=== PATIENT | male | born 1970 | race Caucasian/White ===

== ENCOUNTER → 2022-02-16 09:28 | Outpatient (CLI) | payer OTHER, SELFPAY ==
[2022-02-16 10:15] LABS: Semen Sperm Prescence Post-Vas Absent (ABSENT)
== END ==
PROVIDERS: PCP Family Medicine; Referring Provider Family Medicine; Visit Provider Family Medicine
DX: Z98.52 Vasectomy status (principal)
CPT/HCPCS: 89321

== ENCOUNTER → 2022-03-24 09:59 | Outpatient (CLI) | payer OTHER, SELFPAY ==
[2022-03-24 11:04] LABS: Add Manual Diff / Slide Review NO; Basophils Absolute Auto 0 /uL (0-100); Basophils Percent Auto 0.7 % (0-2); Eosinophils Absolute Auto 100 /uL (0-450); Eosinophils Percent Auto 1.2 % (2-4); Hematocrit 43.3 % (41-53); Hemoglobin 15.1 g/dL (13.5-17.5); Lymphocytes Absolute Auto 1600 /uL (1100-4500); Lymphocytes Percent Auto 31.9 % (25-40); Mean Corpuscular HGB Conc 34.9 % (30-36); Mean Corpuscular Hemoglobin 33.2 PG (26-34); Mean Corpuscular Volume 94.9 fL (80-100); Monocytes Absolute Auto 400 /uL (0-900); Neutrophils Absolute Auto 2800 /uL (1500-7000); Neutrophils Percent Auto 57.2 % (50-75); Platelet Count 239 X10^3/uL (150-400); Red Blood Cell Count 4.56 X10^6/uL (4.5-5.9); Red Cell Distribution Width 12.5 % (11.6-14.8)
[2022-03-24 11:35] LABS: Alanine Aminotransferase 21 IU/L (<50); Albumin 4.7 g/dL (3.5-5.0); Albumin Globulin Ratio 1.6 (1.0-2.8); Alkaline Phosphatase 75 U/L (38-126); Aspartate Aminotransferase 27 IU/L (17-59); BUN Creatinine Ratio 17.9 (6-22); Bilirubin Total 0.9 mg/dL (0.2-1.3); Blood Urea Nitrogen 15 mg/dL (9-20); Calcium 9.1 mg/dL (8.4-10.2); Carbon Dioxide 27 mmol/L (22-32); Chloride 101 mmol/L (98-107); Cholesterol 197 mg/dL (140-199); Estimated Glomerular Filt Rate > 60 mL/min (>60); Glucose 97 mg/dL (70-100); HDL Cholesterol 63 mg/dL (40-60); HEMOLYSIS < 15 (0-50); LDL Cholesterol Calculated 123 mg/dL (<100); Potassium 4.3 mmol/L (3.4-5.1); Sodium 138 mmol/L (137-145); Total Protein 7.7 g/dL (6.3-8.2); Triglycerides 56 mg/dL (35-150)
[2022-03-24 12:05] LABS: Prostate Specific Antigen Scrn 0.813 ng/mL (0.1-4.0)
[2022-03-24 12:42] LABS: TSH w/ Reflex to FT4 1.36 uIU/mL (0.47-4.68)
[2022-03-24 14:26] LABS: Creatinine Urine Random 70.3 mg/dL
[2022-03-24 14:37] LABS: Microalbumin Urine Random < 0.6 mg/dL (0-1.6)
== END ==
PROVIDERS: PCP Family Medicine; Referring Provider Family Medicine; Visit Provider Family Medicine
DX: F41.8 Other specified anxiety disorders (principal); M25.521 Pain in right elbow; R19.09 Other intra-abdominal and pelvic swelling, mass and lump; R63.4 Abnormal weight loss; Z12.5 Encounter for screening for malignant neoplasm of prostate
CPT/HCPCS: 36415; 80053; 80061; 82043; 82570; 84443; 85025; G0103

== ENCOUNTER → 2022-04-27 08:04 | Outpatient (CLI) | payer OTHER, SELFPAY ==
--- NOTE | 2022-04-27 08:05 | DI.US.S_ITS ---
PROCEDURE: US ABDOMEN LIMITED INDICATIONS: right inguinal bulge TECHNIQUE: Real-time focused scanning was performed of the abdomen, with image documentation. COMPARISON: None. FINDINGS: Ultrasound was performed in the area of interest. No hernia is identified. IMPRESSION: No hernia is identified. Dictated by: Tate Ingram M.D. on 04/27/2022 at 17:42 Approved by: Tate Ingram M.D. on 04/27/2022 at 21:06
== END ==
PROVIDERS: PCP Family Medicine; Referring Provider Family Medicine; Visit Provider Family Medicine
DX: R19.09 Other intra-abdominal and pelvic swelling, mass and lump (principal)
CPT/HCPCS: 76705

== ENCOUNTER → 2022-08-21 10:19 | Outpatient (CLI) | payer OTHER, SELFPAY ==
[2022-08-21 11:23] LABS: Vitamin D 25 Hydroxy (D3) 34.5 ng/mL (30.0-100.0)
[2022-08-21 11:39] LABS: Testosterone 443 ng/dL (71.8-623)
== END ==
PROVIDERS: PCP Family Medicine; Referring Provider Registered Nurse Diabetes Educator; Visit Provider Registered Nurse Diabetes Educator
DX: E55.9 Vitamin D deficiency, unspecified (principal); F43.21 Adjustment disorder with depressed mood; R53.83 Other fatigue; R68.82 Decreased libido
CPT/HCPCS: 36415; 82306; 84403

== ENCOUNTER → 2023-08-28 13:33 | Outpatient (CLI) | payer OTHER, SELFPAY ==
[2023-08-28 14:11] LABS: Add Manual Diff / Slide Review NO; Basophils Absolute Auto 0 /uL (0-100); Basophils Percent Auto 0.3 % (0-2); Eosinophils Absolute Auto 0 /uL (0-450); Eosinophils Percent Auto 0.7 % (2-4); Hematocrit 44.5 % (41-53); Hemoglobin 15.1 g/dL (13.5-17.5); Lymphocytes Absolute Auto 1400 /uL (1100-4500); Lymphocytes Percent Auto 27.1 % (25-40); Mean Corpuscular HGB Conc 33.9 % (30-36); Mean Corpuscular Hemoglobin 33.5 PG (26-34); Mean Corpuscular Volume 98.7 fL (80-100); Monocytes Absolute Auto 400 /uL (0-900); Monocytes Percent Auto 7.6 % (3-14); Neutrophils Absolute Auto 3300 /uL (1500-7000); Neutrophils Percent Auto 64.3 % (50-75); Platelet Count 247 X10^3/uL (150-400); Red Blood Cell Count 4.51 X10^6/uL (4.5-5.9); Red Cell Distribution Width 12.3 % (11.6-14.8); White Blood Cell Count 5.2 X10^3/uL (4.5-11.0)
[2023-08-28 14:33] LABS: Alanine Aminotransferase 28 IU/L (<50); Albumin 4.3 g/dL (3.5-5.0); Albumin Globulin Ratio 1.4 (1.0-2.8); Alkaline Phosphatase 71 U/L (38-126); Aspartate Aminotransferase 24 IU/L (17-59); BUN Creatinine Ratio 17.4 (6-22); Bilirubin Total 1.3 mg/dL (0.2-1.3); Blood Urea Nitrogen 15 mg/dL (9-20); Calcium 9.4 mg/dL (8.4-10.2); Carbon Dioxide 29 mmol/L (22-32); Chloride 100 mmol/L (98-107); Cholesterol 185 mg/dL (140-199); Estimated Glomerular Filt Rate > 60 mL/min (>60); Glucose 100 mg/dL (70-100); HDL Cholesterol 65 mg/dL (40-60); HEMOLYSIS < 15 (0-50); LDL Cholesterol Calculated 108 mg/dL (<100); Potassium 4.1 mmol/L (3.4-5.1); Sodium 136 mmol/L (137-145); Total Protein 7.3 g/dL (6.3-8.2); Triglycerides 59 mg/dL (35-150)
[2023-08-28 14:56] LABS: TSH w/ Reflex to FT4 1.28 uIU/mL (0.47-4.68)
== END ==
PROVIDERS: PCP Family Medicine; Referring Provider Family Medicine; Visit Provider Family Medicine
DX: E78.5 Hyperlipidemia, unspecified (principal); F43.12 Post-traumatic stress disorder, chronic; F41.8 Other specified anxiety disorders; Z12.5 Encounter for screening for malignant neoplasm of prostate
CPT/HCPCS: 36415; 80053; 80061; 84443; 85025; G0103

== ENCOUNTER 2025-01-20 06:23 | Day surgery (SDC) | payer OTHER, SELFPAY ==
[2025-01-13 12:43] VITALS: BMI 21.7
[2025-01-20] MEDS: LACTATED RINGERS 1,000 ML 42 ML IV (06:37)
[2025-01-20] MEDS: ACETAMINOPHEN 325 MG TABLET 975 MG PO (06:38)
[2025-01-20 06:50] VITALS: BP 118/72; PULSE 55; RESP 16; TEMP 36.2; O2SAT 99
--- NOTE | 2025-01-20 07:35 | PM.HP.IH.1 ---
History of Present Illness History of Present Illness Date Patient Seen: 01/20/25 Time Patient Seen: 07:35 Chief complaint: Lap R inguinal hernia repair w/mesh Narrative: Juma is a 54-year-old man with a symptomatic right inguinal hernia. See the office note from November for details. No health changes since then. [facility] Surgical History Vasectomy status Social History household members: spouse Smoking Status: Never smoker Meds Home Medications and Allergies Home Medications Medication Instructions Recorded Confirmed Type pibvowi-gawiwybigiybw-emkigrvi 250 1 tab PO Q4-6H PRN 11/11/24 12/03/24 History mg-250 mg-65 mg tablet (Excedrin Migraine) Allergies Allergy/AdvReac Type Severity Reaction Status Date / Time codeine AdvReac Mild Anxiety Verified 01/20/25 06:37 Exam Vital Signs (past 8 hours): - 01/20/25 06:50 Temperature 97.1 F L Pulse Rate 55 L Respiratory Rate 16 Blood Pressure 118/72 Pulse Oximetry 99 Oxygen Delivery Method Room Air Oxygen Delivery Method Room Air Const General: healthy appearing Resp Effort & Inspection: normal respiratory effort Assessment & Plan Assessment and plan (1) Right inguinal hernia: Status: Acute Plan Laparoscopic right inguinal hernia repair with mesh Time-Based Coding :: [TOTAL MINUTES] spent with patient and on the chart (including review of chart, obtaining history, exam, reviewing outside data, placing orders, documenting exam and treatment plan, and counseling patient) on [DATE]. [employer] Supervisor Document charge(s): No
[2025-01-20] MEDS: CEFAZOLIN 2 GM/100 ML PREMIX 100 ML IV (07:52)
[2025-01-20] MEDS: BUPIVACAINE 0.5% W/ EPI (PF) 30 ML VIAL INJ (08:56)
--- NOTE | 2025-01-20 08:56 | P.OP_ITS ---
Operative Date/Time/Diagnoses Date of procedure: 01/20/25 Time of procedure: 08:57 Pre-op diagnosis: Right inguinal hernia Post-op diagnosis: other (Right direct inguinal hernia) Procedure & Clinicians Procedure: Laparoscopic right inguinal hernia repair with mesh Same procedure as scheduled: Yes Surgeon: Tremaine Thorne Program Scheduler: Sean Osman Anesthesia Type: General Operative Notes Procedure in detail: The patient was given preoperative antibiotics. The patient was brought to the operating room, placed on the table in the supine position with the arms tucked and general anesthesia was induced. The abdomen was prepped and draped in the usual fashion. A time-out was performed. A 1 cm supraumbilical incision was created and dissection was carried down to the anterior sheath. There was a small fat containing umbilical hernia. The fatty contents were amputated and the base of the umbilicus was transected. The fascial defect was a proximally 5 mm and had to be opened laterally with Bovie in each direction until it was 1 cm . The fascia was grasped with a Norman clamp to elevate abdominal wall and a Peon clamp was used to mcguire the peritoneum. The Justa port was placed and the abdomen was insufflated to 15 mmHg. The camera was inserted, there was no evidence of any injury from the entry. There was a direct right inguinal hernia. 5 mm ports were placed under direct vision in the mid left and mid right abdomen. The patient was positioned in steep Trendelenburg. We created right peritoneal flap. The peritoneum was dissected off the right cord structures and the fatty contents were reduced from the direct defect. A large right Bard mesh was brought in and placed over the defect with the medial edge against Ravi's ligament. We then closed the peritoneal flap with a running 3- 0 barbed suture. We took one last look around the abdomen and saw no other abnormalities. The suture was removed and accounted for. The 5 mm ports were removed under direct vision. The abdomen was desufflated. The Justa port was removed. Additional local was injected into the fascia and the fascial incision was closed with 2 interrupted 0 Vicryl sutures. The skin incisions were closed with 4 Monocryl, Steri-Strips and Band-Aids. EBL: 10 mL Sean CLEMENTS provided assistance with exposure, retraction and closure of incisions. Post-operative Condition: stable Disposition: PACU
[2025-01-20 09:00] VITALS: BP 119/72; PULSE 91; RESP 16; TEMP 36.5; O2SAT 96
[2025-01-20 09:08] VITALS: BP 99/62; PULSE 77; RESP 14; O2SAT 96
[2025-01-20 09:11] VITALS: BP 112/65; PULSE 91; RESP 14; TEMP 36.2; O2SAT 98
[2025-01-20 09:17] VITALS: BP 121/68; PULSE 95; RESP 14; O2SAT 97
[2025-01-20 09:18] VITALS: BP 115/75; PULSE 91; RESP 14; O2SAT 98
== END 2025-01-20 09:43 | disposition home or self-care (01) ==
PROVIDERS: PCP Family Medicine; Referring Provider Surgery; Visit Provider Surgery
PROC: 0YQ54ZZ Repair Right Inguinal Region, Percutaneous Endoscopic Approach (ICD-10-PCS; CPT 49650; principal; 2025-01-20 07:45)
DX: K40.90 Unilateral inguinal hernia, without obstruction or gangrene, not specified as recurrent (principal); K42.9 Umbilical hernia without obstruction or gangrene
CPT/HCPCS: 49650; C1781; J0330; J0690; J1100; J1171; J2250; J2405; J2704; J3010; J3490